=== PATIENT | male | born 1955 | race Caucasian/White ===

== ENCOUNTER 2025-03-02 12:09 | Emergency (ER) | payer MEDICARE, OTHER ==
[~2025-03-02] VITALS: Ht 172.7 cm; Wt 37.2 kg
[2025-03-02 12:19] VITALS: TEMP 98.1
[2025-03-02 12:42] LABS: PLATELET COUNT (AUTO) 275 K/uL (150-450); RED BLOOD CELL COUNT(AUTO) 5.33 MIL/uL (4.50-5.90); RED CELL DISTRIBUTION WIDTH 13.4 % (11.5-14.5); WHITE BLOOD COUNT (AUTO) 8.3 K/uL (4.5-11.0)
[2025-03-02 12:46] LABS: CALCIUM, TOTAL 8.9 mg/dL (8.8-10.5); CREATININE 1.37 mg/dL (0.60-1.30); GLOMERULAR FILTR. RATE CALC 52.0 mL/min (>60); GLUCOSE,RANDOM 150.0 mg/dL (70-110); SODIUM SERUM 142.0 mmol/L (136-145); UREA NITROGEN, BLOOD 20.0 mg/dL (7-18)
[2025-03-02 13:32] LABS: COVID AG,FIA SOURCE NASAL SWAB
[2025-03-02 13:37] LABS: PH,URINE DRUG SCREEN 5.0 (5.0-8.0)
[2025-03-02 13:45] LABS: ALCOHOL, URINE DRUG SCREEN NEGATIVE (NEGATIVE); AMPHET/METH SCREEN,URINE NEGATIVE (NEGATIVE); BARBITURATE SCREEN, URINE NEGATIVE (NEGATIVE); CANNABINOID SCREEN,URINE NEGATIVE (NEGATIVE); COCAINE SCREEN,URINE NEGATIVE (NEGATIVE); METHADONE SCREEN, URINE NEGATIVE (NEGATIVE)
[2025-03-02 14:24] LABS: SARS-COV2 (COVID) ANTIGEN,FIA Negative (Negative)
[2025-03-02 15:00] VITALS: BP 140/90; PULSE 62; RESP 16; O2SAT 98
== END 2025-03-02 15:27 | disposition home or self-care (01) ==
LOC: EMS 12:09
DX: F32.A Depression, unspecified (principal); R45.851 Suicidal ideations; Z20.822 Contact with and (suspected) exposure to COVID-19
CPT/HCPCS: 99285; 87426; 80048; 85025; 36415; 80307; G0480